=== PATIENT | female | born 1985 | race Hispanic/Latino ===

== ENCOUNTER → 2019-08-20 | Outpatient (CLI) | payer MEDICAID ==
[~2019-08-20] MED LIST: LIDOCAINE HCL 1% 20 ML VIAL ONE; SODIUM BICARB 50MEQ 50ML VIAL ONE
[2019-08-20 10:46] LABS: INR 1.02 (0.85-1.15); PARTIAL THROMBOPLASTIN TIME 26.2 SEC (26.3-35.5); PROTHROMBIN TIME 10.7 SEC (9.6-11.6)
--- NOTE | 2019-08-20 11:10 | NUR ---
U/S GUIDED FNA/BIOPSY LEFT THYROID NODULE PROCEDURE PERFORMED BY DR. CARVAJAL. PUNCTURE SITE LEFT ANTERIOR NECK. PATIENT TOLERATED PROCEDURE WELL. SPECIMEN X 5 COLLECTED. END OF PROCEDURE AT 1120. BIOPSY NEEDLE REMOVED AND DRESSING APPLIED. NO BLEEDING NOTED. DISCHARGE INSTRUCTIONS GIVEN TO PATIENT AND VERBALIZED UNDERSTANDING. DISCHARGED AT 1140 AMBULATORY WITH ICE PACK TO LEFT ANTERIOR NECK. PT STABLE, AAO X 3, WITH NO C/O PAIN.
== END ==
LOC: RAH 09:30
PROVIDERS: ATTEND Internal Medicine
DX: E04.1 Nontoxic single thyroid nodule (principal)
CPT/HCPCS: 36415; 60100; 76942; 85610; 85730; 88161; 88173; 88305 ×2; A4215; J3490